=== PATIENT | female | born 1995 | race African-American/Black ===

== ENCOUNTER 2016-05-24 21:13 | Emergency (ER) | payer MEDICAID ==
[~2016-05-24] VITALS: Ht 160 cm; Wt 82.1 kg
[~2016-05-24 21:13] MED LIST: ALBU18; AZI250T PO; BECL0.07; FLUT44AE; FLUT50SP13; LORA-352; PRE5T; PRED-188 PO; TRAM50TA2 PO
[2016-05-24 22:51] LABS: Basophils # (auto) 0.2 uL; Basophils % (auto) 1.8 % (0.0-2.0); DEFINITIVE VIEW TRANSMISSION; Eosinophils # (auto) 0.9 uL; Eosinophils % (auto) 10.9 % (0.0-7.0); Hematocrit 37.2 % (36.0-46.0); Lymphocytes # (auto) 2.5 uL; Lymphocytes % (auto) 30.2 % (10.0-50.0); Mean Corpuscular Hemoglobin 24.4 pg (28.0-32.0); Mean Corpuscular Hgb Conc. 32.2 g/dL (32.0-36.0); Mean Corpuscular Volume 75.7 fL (80.0-100.0); Mean Platelet Volume 9.2 fL (7.4-10.4); Monocytes # (auto) 0.7 uL; Monocytes % (auto) 8.3 % (0.0-12.0); Neutrophils % (auto) 48.8 % (37.0-80.0); Platelet Count (auto) 309 10^3/uL (140-450); Red Cell Distribution Width 15.8 % (11.6-16.0); White Blood Cell 8.2 10^3/uL (4.4-10.8)
[2016-05-24 22:59] LABS: Albumin 3.3 g/dL (3.4-5.0); BUN/Creatinine Ratio 10.9; Bilirubin, Total 0.2 mg/dL (0.2-1.0); Calcium 8.6 mg/dL (8.5-10.1); Total Protein 7.3 g/dL (6.4-8.2)
[2016-05-24] MEDS ORDERED: ALBUTEROL SULF 2.5 MG/0.5ML(0.5%) NEB SOLN HHN STA (23:50)
[2016-05-25] MEDS ORDERED: SODIUM CHLORIDE 0.9% 1,000 ML IV ONE (00:30)
[2016-05-25] MEDS ORDERED: IPRATROPIUM BROM 0.5 MG/2.5ML INH SOL NEB ONE ×2 (00:30)
[2016-05-25] MEDS ORDERED: methylPREDNISolone SOD SUCC 125 MG/2 ML VL IV ONE (00:30)
[2016-05-25] MEDS ORDERED: ALBUTEROL SULF 2.5 MG/0.5ML(0.5%) NEB SOLN NEB ONE (00:30)
[2016-05-25 01:06] LABS: Urine Bilirubin Negative (Negative); Urine Blood Negative /uL (Negative); Urine Color Yellow (Yellow); Urine Glucose Normal (Normal); Urine Ketone Negative (Negative); Urine Mucus FEW (None Seen); Urine Nitrite Negative (Negative); Urine RBC 2 /hpf (0 - 4); Urine Squamous Epithelial Cell FEW /hpf (<5); Urine pH 7.5 (5.0-8.0)
[2016-05-25 02:52] VITALS: BP 121/76
== END 2016-05-25 02:57 | disposition home or self-care (01) ==
LOC: ER 21:36
DX: J45.901 Unspecified asthma with (acute) exacerbation (principal); E66.01 Morbid (severe) obesity due to excess calories; Z68.32 Body mass index [BMI] 32.0-32.9, adult
CPT/HCPCS: 36415; 71020; 80053; 81001; 81025; 85025; 94640; 96361; 96374; 99285; J2930; J7030

== ENCOUNTER 2016-07-01 17:20 | Emergency (ER) | payer MEDICAID ==
[~2016-07-01] VITALS: Ht 160 cm; Wt 81.6 kg
[2016-07-01 17:27] VITALS: BP 133/84
== END 2016-07-01 23:30 | disposition left against medical advice (07) ==
LOC: ER 17:26
DX: M25.562 Pain in left knee (principal); Z53.21 Procedure and treatment not carried out due to patient leaving prior to being seen by health care provider

== ENCOUNTER 2017-11-30 18:29 | Emergency (ER) | payer MEDICAID ==
[~2017-11-30] VITALS: Ht 160 cm; Wt 66.2 kg
[~2017-11-30 18:29] MED LIST changes: -AZI250T PO; +AZIT250T8 PO
[2017-11-30 18:45] VITALS: BP 112/62
[2017-11-30] MEDS ORDERED: ALBUTEROL SULF 2.5 MG/0.5ML(0.5%) NEB SOLN NEB ONE (21:30)
[2017-11-30] MEDS ORDERED: IPRATROPIUM BROM 0.5 MG/2.5ML INH SOL NEB ONE (21:30)
[2017-11-30] MEDS ORDERED: cefTRIAXone SOD 1,000 MG VL IM ONE (21:45)
[2017-11-30] MEDS ORDERED: LIDOCAINE 1%HCL (LOCAL ANESTH) 10 ML MDV ONE (22:16)
== END 2017-11-30 23:07 | disposition home or self-care (01) ==
LOC: ER 18:29
DX: J45.901 Unspecified asthma with (acute) exacerbation (principal); J20.9 Acute bronchitis, unspecified
CPT/HCPCS: 94640; 96372; 99283; J0696; J2001; J7611; J7644

== ENCOUNTER 2023-03-31 16:18 | Emergency (ER) | payer MEDICAID ==
[~2023-03-31] VITALS: Ht 160 cm; Wt 98.1 kg
[~2023-03-31 16:18] MED LIST changes: +AZIT-81 PO; -AZIT250T8 PO; -LORA-352; +LORA10TA6
[2023-03-31 17:25] LABS: Rapid Strep A Screen-Throat Negative
[2023-03-31 18:43] VITALS: BP 144/76; PULSE 94; RESP 19; TEMP 98.4; O2SAT 100
[2023-03-31] MEDS ORDERED: ACET500T58 PO (18:47)
[2023-03-31] MEDS ORDERED: PRED20TA2 PO (18:47)
[2023-03-31] MEDS ORDERED: AMOX875T4 PO (18:47)
[2023-03-31] MEDS: cefTRIAXone SOD 1,000 MG VL IM ONE (18:57)
[2023-03-31] MEDS: methylPREDNISolone SOD SUCC 125 MG/2 ML VL IM ONE (18:58)
[2023-03-31] MEDS: ACETAMINOPHEN 650 mg PER 20.3 mL UD PO ONE (18:58)
== END 2023-03-31 19:07 | disposition home or self-care (01) ==
LOC: ER 16:18
DX: J03.90 Acute tonsillitis, unspecified (principal); J45.909 Unspecified asthma, uncomplicated; Z88.1 Allergy status to other antibiotic agents
CPT/HCPCS: 87070; 87880; 96372; 99284; J0696; J2930